=== PATIENT | female | born 1955 | race African-American/Black ===

== ENCOUNTER 2019-03-03 04:14 | Inpatient (IN) | payer BC ==
[~2019-03-03] VITALS: Ht 167.6 cm; Wt 81.2 kg
[2019-03-03] VITALS (11 sets, daily range): BP systolic 86–140; BP diastolic 11–82
--- NOTE | ~2019-03-03 | HC ---
[facility] [address] [place] [address] CONSULTATION Name: SERA HERMAN Room #: 212-P [facility] M.R.#: [id number] Admission: 03/03/19 Attend Phys: Seng Iraheta MD Discharge: Date of : 59 Report #: [id number] THIS REPORT FOR: //name// CC: Seng Iraheta MD FAM unknown CARDIOLOGY CONSULTATION HISTORY OF PRESENT ILLNESS: The patient is a 63-year-old female. 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 Coming off her shift and had significant back and chest discomfort. She has not had prior cardiac history, but has been a diabetic for 15 years. She denies any real change in exercise tolerance, perhaps some recent fatigue she states. There were equivocal EKG changes initially, a repeat then showed ST depression anteriorly and then high lateral leads, some subtle inferior ST elevation, which did develop. The patient has been maintained on lisinopril and metformin at home, not aware that she has been on a statin. She sees Dr. Iraheta. There was a CT performed. I suspect to rule out dissection. There was no evidence of aneurysm. Pulmonary arteries appear to be normal essentially and no evidence of dissection. LABORATORY WORK: Creatinine 1.2, potassium 3.7, troponin was less than 0.06. H and H was 11.6 and 35.5. PAST MEDICAL HISTORY: Positive for hypertension, diabetes and suspected hypercholesterolemia. Denies any surgeries. SOCIAL HISTORY: She is . She has no alcohol or tobacco. She is an FELLER HAND. She is relatively active. FAMILY HISTORY: Really not known she states. There are no records from her home country of [place] on her family she states. REVIEW OF SYSTEMS: Essentially negative except for stated above. PHYSICAL EXAMINATION: VITAL SIGNS: Pulse is 60s and blood pressure 110/70. HEENT: Eyes reveal xanthelasmas. Pharynx is clear. NECK: Shows preserved upstrokes without JVD or bruits. LUNGS: Clear. CARDIOVASCULAR: Regular rate and rhythm, S1, S2. ABDOMEN: Soft. No HSM or abdominal bruit. EXTREMITIES: Reveal no edema. Her pulses were intact. NEUROLOGIC: Intact. MUSCULOSKELETAL: No gross joint deformity. ASSESSMENT: [address] [address] CONSULTATION Name: SERA HERMAN Room #: 212-P [facility] M.R.#: [id number] Admission: 03/03/19 Attend Phys: Seng Iraheta MD Discharge: Date of : 59 Report #: [id number] 1. Acute stuttering inferior wall myocardial infarction, STEMI. 2. Diabetes. 3. Hypertension. 4. Suspected hypercholesterolemia. RECOMMENDATIONS AND PLAN: Heparin, aspirin and Lipitor 80 have been given. We will proceed to the catheterization lab for angiography and possible intervention. Risks, benefits, alternatives were quickly discussed with the patient. There are no known drug allergies. We will proceed on. Thank you for asking me to assist in the care of this patient. By: 0828 0852 /nt
[2019-03-03 04:56] LABS: ABSOLUTE NEUTROPHILS 6.6 thou/uL (1.4-8.2); BASOPHILS 0.6 % (0.0-2.0); EOSINOPHILS 1.9 % (0.0-3.0); HEMATOCRIT 35.5 % (37.0-47.0); HEMOGLOBIN 11.6 gm/dL (12.0-15.0); LYMPHOCYTES 29.5 % (24.0-44.0); MCH 28.2 pg (26.0-34.0); MCHC 32.7 g/dL (28.0-37.0); MCV 86.3 fL (80.0-100.0); PLATELET COUNT 293 thou/uL (150-400); RBC 4.11 mil/uL (4.20-5.00); RDW 14.2 % (10.5-14.5); WBC 10.8 thou/uL (4.0-11.0)
[2019-03-03 05:03] LABS: ANION GAP 10 mmol/L (7-16); BUN 29 mg/dL (7-18); CALCIUM 9.3 mg/dL (8.5-10.1); CHLORIDE 103 mmol/L (98-107); CO2 26 mmol/L (21-32); CREATININE 1.2 mg/dL (0.6-1.0); GLUCOSE 162 mg/dL (74-106); POTASSIUM 3.7 mmol/L (3.5-5.1); SODIUM 139 mmol/L (136-145)
[2019-03-03 05:13] LABS: ALBUMIN 3.8 g/dL (3.4-5.0); DIRECT BILIRUBIN < 0.1 mg/dL (<0.1-0.2); LIPASE 249 U/L (73-393); SGOT 18 U/L (15-37); SGPT 30 U/L (30-65); TOTAL BILIRUBIN 0.3 mg/dL (<0.1-1.0); TOTAL PROTEIN 7.1 g/dL (6.4-8.2); TROPONIN-I <0.06 ng/mL (<0.06)
[2019-03-03] MEDS ORDERED: LISINOPRIL20 MG PO (05:16)
[2019-03-03] MEDS ORDERED: GLUCOPHAGE1000 MG PO (05:17)
[2019-03-03] MEDS ORDERED: VICTOZA0.6 MG/0.1 SUBQ (08:41)
[2019-03-03] MEDS ORDERED: EFFEXOR XR75 MG PO (08:41)
[2019-03-03] MEDS ORDERED: FENOFIBRATE150 MG PO (08:42)
[2019-03-03] MEDS ORDERED: GLYBURIDE 5 MG T5 M1 PO (08:46)
[2019-03-03] MEDS ORDERED: KEFLEX250 M1 PO (08:47)
--- NOTE | 2019-03-03 14:10 | 2DMMODE ---
[facility] [address] [place] [address] 2 D/M-MODE ECHOCARDIOGRAM Name: SERA HERMAN Room #: 212-P ADM IN M.R.#: [id number] Admission: 03/03/19 Attend Phys: Seng Iraheta MD Discharge: Date of : 59 Report #: [id number] THIS REPORT FOR: //name// APPROVED REPORT Study performed: 03/03/2019 09:25:02 EXAM: Comprehensive 2D, Doppler, and color-flow Echocardiogram Patient Location: Bedside Room #: 212 Status: routine BSA: 1.87 HR: 60 bpm BP: 101/62 mmHg Rhythm: NSR Other Information Study Quality: Adequate Technically limited study due to inability to position patient post heart cath. Indications STEMI. Hx: HTN, HLP, DM. 2D Dimensions RVDd: 26.02 mm IVSd: 8.59 (7-11mm) LVOT Diam: 19.92 (18-24mm) LVDd: 42.28 mm PWd: 8.84 (7-11mm) Ascending Ao: 32.05 (22-36mm) LVDs: 26.37 (25-40mm) Aortic Root: 32.82 mm Volumes Left Atrial Volume (Systole) Single Plane 4CH: 36.85 mL Single Plane 2CH: 44.66 mL LA ESV Index: 23.00 mL/m2 Aortic Valve AoV Peak Graeme.: 1.40 m/s AO Peak Gr.: 7.89 mmHg LVOT Max P.09 mmHg LVOT Max V: 1.13 m/s ROSALINDA Vmax: 2.50 cm2 Mitral Valve [facility] [address] [place] [address] 2 D/M-MODE ECHOCARDIOGRAM Name: SERA HERMAN Room #: 212-P [facility] IN [facility].#: [id number] Admission: 03/03/19 Attend Phys: Seng Iraheta MD Discharge: Date of : 59 Report #: [id number] E/A Ratio: 0.9 MV Decel. Time: 212.49 ms MV E Max Graeme.: 0.80 m/s MV A Graeme.: 0.93 m/s MV PHT: 61.62 ms IVRT: 83.04 ms Pulmonary Valve PV Peak Graeme.: 0.91 m/s PV Peak Gr.: 3.33 mmHg Pulmonary Vein P Vein S: 0.69 m/s P Vein A: 0.36 m/s P Vein D: 0.35 m/s P Vein A Dur.: 152.2 msec P Vein S/D Ratio: 1.97 Tricuspid Valve TR Peak Graeme.: 2.45 m/s RAP Estimate: 5.00 mmHg TR Peak Gr.: 24.00 mmHg PA Pressure: 29.00 mmHg Left Ventricle The left ventricle is normal size. There is normal LV segmental wall motion. There is normal left ventricular wall thickness. Left ventricular systolic function is normal. LVEF is 55-60%. Mild diastolic dysfunction is present (impaired relaxation pattern). Right Ventricle The right ventricle is normal size. The right ventricular systolic function is normal. Atria The left atrium size is normal. The right atrium size is normal. Aortic Valve The aortic valve is normal in structure. No aortic regurgitation is present. There is no aortic valvular stenosis. Mitral Valve The mitral valve is normal in structure. Trace mitral regurgitation. Tricuspid Valve The tricuspid valve is normal in structure. Mild to moderate tricuspid regurgitation. Estimated PAP is 30mmHg. [facility] [address] [place] [address] 2 D/M-MODE ECHOCARDIOGRAM Name: SERA HERMAN Room #: 212-P [facility] IN .R.#: [id number] Admission: 03/03/19 Attend Phys: Seng Iraheta MD Discharge: Date of : 59 Report #: [id number] Pulmonic Valve The pulmonary valve is normal in structure. Trace pulmonic regurgitation. Great Vessels The aortic root is normal in size. The ascending aorta is normal in size. IVC is normal in size and collapses >50% with inspiration. Pericardium There is no pericardial effusion. <Conclusion> The left ventricle is normal size. LVEF is 55-60%. The aortic valve is normal in structure. The mitral valve is normal in structure. Trace mitral regurgitation. The tricuspid valve is normal in structure. Mild to moderate tricuspid regurgitation. Estimated PAP is 30mmHg. The pulmonary valve is normal in structure. Trace pulmonic regurgitation. There is no pericardial effusion. <ELECTRONICALLY SIGNED> By: Juan Aldana MD 03/03/19 1409 1409 1409 Juan Aldana MD /INF
--- NOTE | 2019-03-03 19:20 | NUR ---
DR. FRAIRE ON FLOOR WHEN NOTIFIED ABOUT PT'S ADMISSION; ORDERS RECEIVED; PT. ARRIVED AT FLOOR AROUND 0800; AOX4; R. GROIN AREA; C/D/I; NO C/O PAIN; EDUCATED ABOUT BED REST FOR 3H; FROM 0740 TO 1040; ST. UNDERSTANDING; EDUCATED ABOUT HOLDING PRESSURE IF COUGH OR LAUGHING TO HARD; ST. UNDERSTANDING; SBP ON THE 90s; MAP ABOVE 65; NS AT 70 FOR 7H; INTEGRILIN RUNNING AT 2MCG/KG/H; SECOND BOTTLE RUNNED ON THE FLOOR; THROUGH THE DAY NO HEMATOME OVER R. GROIN AREA; AROUND NOON SMALL DRAINAGE NOTICED; CHECK CHARTING; NO INCREASE DRAINAGE; C/O BACK PAIN; NO PRN PAIN MEDICATION; PHYSICIAN NOTIFIED; ORDERS RECEIVED; HR ON THE MONITOR; ASSESSMENT CHARGED; FOLLOWING POC; PASSED ON REPORT;
--- NOTE | 2019-03-03 19:44 | EKG ---
[place] [address] [facility] [place] [address] ELECTROCARDIOGRAM REPORT Name: KAMILAHLANCESERA Room #: 212-P ADM IN M.R.#: [id number] Admission: 03/03/19 Attend Phys: Seng Iraheta MD Discharge: Date of : 59 Report #: [id number] THIS REPORT FOR: //name// [facility] ED Test Date: 2019-03-03 Test Time: 04:17:04 Pat Name: SERA HERMAN Department: Room: [facility] Gender: F Publishing Manager: kristine : 1955 Requested By: Momo Stinson Order Number: [id number] MD: Tate Kimbrough Measurements Intervals [place] Rate: 60 P: 52 NH: 150 QRS: 32 QRSD: 90 T: 74 QT: 417 QTc: 417 Interpretive Statements Sinus rhythm Borderline repolarization abnormality No previous ECG available for comparison Electronically Signed On 03-03-2019 19:43:59 BRAND PROTECTION MANAGER by Tate Kimbrough [email or web address] <ELECTRONICALLY SIGNED> By: Tate Kimbrough MD, [facility] 03/03/19 1943 0417 0417 Tate Kimbrough MD, FACC /EPI
--- NOTE | 2019-03-03 19:45 | EKG ---
[place] [address] [employer] [place] [address] ELECTROCARDIOGRAM REPORT Name: SERA HERMAN Room #: 212-P ADM IN M.R.#: [id number] Admission: 03/03/19 Attend Phys: Seng Iraheta MD Discharge: Date of : 59 Report #: [id number] THIS REPORT FOR: //name// [facility] ED Test Date: 2019-03-03 Test Time: 05:05:16 Pat Name: SERA HERMAN Department: Room: [facility] Gender: F Shirt Hemmer: cruzito : 1955 Requested By: Momo Stinson Order Number: [id number] MD: Tate Kimbrough Measurements Intervals [place] Rate: 62 P: 45 [place]: 158 QRS: 29 QRSD: 79 T: 94 QT: 394 QTc: 400 Interpretive Statements Sinus rhythm T wave abnormality No previous ECG available for comparison Electronically Signed On 03-03-2019 19:44:36 FRANCHISE BUSINESS CONSULTANT by Tate Kimbrough [email or web address] <ELECTRONICALLY SIGNED> By: Tate Kimbrough MD, [facility] 03/03/19 1944 0505 0505 Tate Kimbrough MD, FACC /EPI
--- NOTE | 2019-03-03 19:46 | EKG ---
[place] [address] [facility] [place] [address] ELECTROCARDIOGRAM REPORT Name: SERA HERMAN Room #: 212-P ADM IN M.R.#: [id number] Admission: 03/03/19 Attend Phys: Seng Iraheta MD Discharge: Date of : 59 Report #: [id number] THIS REPORT FOR: //name// [facility] ED Test Date: 2019-03-03 Test Time: 05:10:00 Pat Name: SERA HERMAN Department: Room: [facility] Gender: F Sampling Expert: : 1955 Requested By: Momo Stinson Order Number: [id number] MD: Tate Kimbrough Measurements Intervals [place] Rate: 71 P: 41 [place]: 164 QRS: 31 QRSD: 79 T: 99 QT: 382 QTc: 416 Interpretive Statements Sinus rhythm ST elevation, consider inferior injury No previous ECG available for comparison Electronically Signed On 03-03-2019 19:46:20 PIT OPERATOR by Tate Kimbrough [email or web address] <ELECTRONICALLY SIGNED> By: Tate Kimbrough MD, [facility] 03/03/19 1946 0510 0510 Tate Kimbrough MD, FACC /EPI
[2019-03-04 03:41] VITALS: BP 104/57
--- NOTE | 2019-03-04 05:19 | NUR ---
ASSUMED PT CARE AROUND 1920. PT WAS RESTING IN BED WITH AT BEDSIDE. DRESSING WAS CHECKED AND THERE WAS NO MORE DRAINAGE FROM PREVIOUS SHIFT. MONITORED PT CLOSELY THRU NIGHT FOR ANY SIGNS OF PAIN OR FURTHER DRAINAGE. NONE NOTED AND DRESSING WAS CHANGED. PT HAD NO C/O OF CHEST PAIN, SOA, OR N/V/D. PT IS PROGRESSING TOWARDS PLAN OF CARE APPROPRIATELY.
[2019-03-04 05:40] LABS: HEMATOCRIT 33.9 % (37.0-47.0); HEMOGLOBIN 10.8 gm/dL (12.0-15.0); MCH 27.8 pg (26.0-34.0); MCV 86.9 fL (80.0-100.0); RBC 3.9 mil/uL (4.20-5.00); WBC 8.1 thou/uL (4.0-11.0)
[2019-03-04 05:55] LABS: ALBUMIN 3.1 g/dL (3.4-5.0); ANION GAP 9 mmol/L (7-16); BUN 20 mg/dL (7-18); CHLORIDE 107 mmol/L (98-107); CHOLESTEROL 132 mg/dL (<200); CO2 27 mmol/L (21-32); CREATININE 1.1 mg/dL (0.6-1.0); GLUCOSE 86 mg/dL (74-106); HDL CHOLESTEROL 36 mg/dL (>40); LDL CHOLESTEROL 87 mg/dL (<100); SGOT 57 U/L (15-37); SGPT 35 U/L (30-65); SODIUM 143 mmol/L (136-145); TC:HDL 3.7 Ratio (Not establshd); TOTAL BILIRUBIN 0.3 mg/dL (<0.1-1.0); TOTAL PROTEIN 6.2 g/dL (6.4-8.2); TRIGLYCERIDE 47 mg/dL (<150); VLDL 9 mg/dL (<40)
[2019-03-04 05:58] LABS: SERUM ASSESSMENT Clear; TROPONIN-I 9.59 ng/mL (<0.06)
[2019-03-04 07:00] VITALS: BP 107/63
[2019-03-04 10:30] VITALS: BP 124/75
[2019-03-04 15:30] VITALS: BP 118/65
--- NOTE | 2019-03-04 19:15 | NUR ---
Pt stable today. No chest pain. Right groin site stable. Report given to RN assuming care.
[2019-03-04 20:11] VITALS: BP 103/53
[2019-03-05 00:06] LABS: GLYCOHEMOGLOBIN (HGB A1C) 6.2 % (4.8-5.6)
[2019-03-05 03:22] VITALS: BP 107/67
[2019-03-05 05:21] LABS: CALCIUM 9.2 mg/dL (8.5-10.1); POTASSIUM 3.9 mmol/L (3.5-5.1)
[2019-03-05 05:24] LABS: ABSOLUTE NEUTROPHILS 3.4 thou/uL (1.4-8.2); BASOPHILS 0.5 % (0.0-2.0); EOSINOPHILS 3.7 % (0.0-3.0); HEMATOCRIT 35.2 % (37.0-47.0); HEMOGLOBIN 11.5 gm/dL (12.0-15.0); LYMPHOCYTES 41.5 % (24.0-44.0); MCH 28.2 pg (26.0-34.0); MCHC 32.6 g/dL (28.0-37.0); MCV 86.5 fL (80.0-100.0); MONOCYTES 9.2 % (1.0-8.0); PLATELET COUNT 236 thou/uL (150-400); POLYS 45.1 % (36.0-66.0); RBC 4.07 mil/uL (4.20-5.00); RDW 14.3 % (10.5-14.5); WBC 7.6 thou/uL (4.0-11.0)
[2019-03-05 07:00] VITALS: BP 112/69
[2019-03-05] MEDS ORDERED: ASPIRIN325 PO (07:18)
[2019-03-05] MEDS ORDERED: METOPROLOL SUCC25 M1 PO (07:18)
[2019-03-05] MEDS ORDERED: EFFIENT10 MG PO (07:18)
[2019-03-05] MEDS ORDERED: LIPITOR40 MG PO (07:18)
--- NOTE | 2019-03-05 07:22 | H ---
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 The patient called her and talked to her coworkers who advised her to come to the Emergency Room to be evaluated. The patient was found to have ST depression anteriorly and then high lateral leads, depression and some subtle inferior ST elevation. For this reason, the patient was taken immediately to the cardiac catheterization for evaluation and treatment. The patient was found to have a ST elevation myocardial infarction and she was treated with angioplasty. PAST MEDICAL HISTORY: Significant for depression, diabetes mellitus, hyperlipidemia, hypertension, morbid obesity, and peripheral neuropathy. The patient had previous history of cholecystectomy and . MEDICATIONS: The patient's medications include Effexor 75 mg daily, fenofibrate 160 mg daily, lisinopril 20 mg daily, metformin 1000 mg twice a day, Victoza 1.2 mg subcutaneous daily. ALLERGIES: No known drug allergy. SOCIAL HISTORY: The patient denies any smoking, alcohol use or drug use. FAMILY HISTORY: Not contributory. REVIEW OF SYSTEMS: Negative besides what was mentioned above. PHYSICAL EXAMINATION: VITAL SIGNS: On arrival to the hospital, the patient's temperature was 97.7, pulse 60, respirations 16, blood pressure 110/70. HEAD AND NECK: Unremarkable. NECK: Supple. LUNGS: Clear to auscultation with good air entry bilaterally. CARDIAC: S1, S2, without any murmur or gallop. ABDOMEN: Benign. Bowel sounds were positive. EXTREMITIES: Without any edema. [facility] [address] [place] [address] HISTORY AND PHYSICAL Name: SERA HERMAN Room #: 212-P [facility] [place] [facility]#: [id number] Admission: 03/03/19 Attend Phys: Seng Iraheta MD Discharge: Date of : 59 Report #: [id number] LABORATORY DATA: The patient's CBC with diff showed white count of 10.8, hemoglobin 11.6, hematocrit 35.5, platelet count 293, neutrophils are 61%. Basic metabolic panel showed a sodium of 139, potassium 3.6, chloride 103, bicarbonate 26, anion gap 10, BUN 29, creatinine 1.2, glucose 162, AST 18, lipase 249, total bilirubin 0.3, direct bilirubin 0.1, calcium 9.3, alkaline phosphatase 48, ALT 30. The patient's initial troponin was less than 0.06. The patient's chest x-ray showed normal single chest x-ray. A CT angiogram showed minimal atherosclerosis of the abdominal aorta without evidence of aneurysm, dissection or focal narrowing. Stomach was distended with food and liquid. Pulmonary arteries were symmetric perfusion and no evidence of filling defects. Echocardiogram showed left ventricular size is normal, normal left ventricular ejection fraction 55-60%. Aortic valve is normal. Mitral valve is normal, trace mitral regurgitation. Tricuspid valve normal. [id number] tricuspid regurgitation with estimated pulmonary artery pressure is 30. Pulmonary valve is normal in structure, trace pulmonic regurgitation and no pericardial effusion. EKGs were reviewed. Today's CBC showed white count of 8.1, hemoglobin 10.8, hematocrit 33.9. A comprehensive metabolic panel showed a BUN of 20, creatinine 1.1, AST 57, alkaline phosphatase 41. Troponin was 9.59, total cholesterol is 132, triglycerides 47, HDL 36, LDL 87. ASSESSMENT AND PLAN: 1. ST elevation myocardial infarction. 2. Diabetes mellitus. 3. Hypertension. 4. Morbid obesity. 5. Peripheral arterial disease. 6. Depression. The patient was admitted to the hospital with the above-mentioned diagnoses. The patient had emergent cardiac catheterization with angioplasty to the right coronary artery. The patient would be advised to continue her current medications. The patient was started on atorvastatin during her hospitalization. She is on Integrilin infusion. The patient will be started on insulin while she is in the hospital. We are holding the patient's metformin for now because of the use of contrast. The patient's kidney function continued to be stable. The patient's blood pressure is stable on lisinopril. She is to continue the rest of her medications. We will continue to monitor the patient for now. I will add Victoza to her medication list. <ELECTRONICALLY SIGNED> By: Seng Iraheta MD 03/05/19 0722 0706 0736 Seng Iraheta MD /nt
--- NOTE | 2019-03-05 08:24 | EKG ---
[place] [address] [employer] [facility] [employer] [place] [address] ELECTROCARDIOGRAM REPORT Name: SERA HERMAN Room #: 212-P ADM IN M.R.#: [id number] Admission: 03/03/19 Attend Phys: Seng Iraheta MD Discharge: Date of : 59 Report #: [id number] THIS REPORT FOR: //name// [facility] Test Date: 2019-03-04 Test Time: 07:37:30 Pat Name: SERA HERMAN Department: Room: 212 P Gender: F Technology Internship: EDMUNDO : 1955 Requested By: Carrie Barron Order Number: [id number] MD: Tate Kimbrough Measurements Intervals [place] Rate: 67 P: 37 DC: 122 QRS: 4 QRSD: 92 T: -24 QT: 425 QTc: 449 Interpretive Statements Sinus rhythm Inferior infarct, recent Compared to ECG 03/03/2019 05:10:[address] segment elevation is no longer present Electronically Signed On 03-05-2019 8:23:14 COMMERCIAL GLAZIER by Tate Kimbrough [email or web address] <ELECTRONICALLY SIGNED> By: Tate Kimbrough MD, [facility] 03/05/19822 6 6 Tate Kimbrough MD, [facility] /EPI
[2019-03-05 08:28] VITALS: BP 112/69
[2019-03-05 08:51] VITALS: BP 112/69
--- NOTE | 2019-03-05 09:35 | NUR ---
BEING DISCHARGED TO HOME. SALINE LOCK, TELE DISCONTINUED. DISCHARGE INSTRUCTIONS INCLUDING NEW MED INFO GIVEN.
--- NOTE | 2019-03-05 18:40 | CATHLAB ---
[facility] [address] [place] [address] INVASIVE PROCEDURE REPORT Name: SERA HERMAN Room #: 212-P [facility] IN [facility]#: [id number] Admission: 03/03/19 Attend Phys: Seng Iraheta MD Discharge: 03/05/19 Date of : 59 Report #: [id number] THIS REPORT FOR: //name// APPROVED REPORT Study performed: 03/03/2019 05:45:38 Patient Details Patient Status: ED Room #: The patient is a 63 year-old female Event Personnel Pito Richards Security Support Analyst, Halle Montero RN, Tavia Gonzalez RTR, EDUCATION PARAPROFESSIONAL Monitor, Elise Nicole Higgins, Marie RN hot air furnace installer repairer Performed Art Access - R femoral artery* Left Heart Cath w/or w/o Coronaries [id number] [facility] Revasc AMI Total/Sub Single RCA C9606 AMIREVSING 79432 Initial Mod Sed Same Phys/QHP Gr5y 008940 20626 Mod Sed Same Phys/QHP Ea 320205 Hemostasis w/ Mynx Indication STEMI (>0 to less than or equal to 6 hours) Procedure Narrative The Right Groin^ was infiltrated with 1% Lidocaine subcutaneous anesthesia. A PINNACLE 6FR Sheath #[id number] sheath was inserted into the RFA^. Coronary angiography was performed using coronary diagnostic catheters. The right coronary system was accessed and visualized with a JR4 catheter. The left coronary system was accessed and visualized with a JL4 catheter. The left ventricle was accessed and visualized with a PIGTAIL catheter. Left ventriculogram was performed in 30 degree projection. An aortogram of the abdominal aorta was performed. Closure device was deployed with a 6 Fr MYNXGRIP 6/7F #[id number]. The patient tolerated the procedure well and there were no complications associated with the procedure. There was no hematoma. Intraoperative Conscious Sedation Sedation start time: 06:12 Case end Time: 07:39 Fentanyl 100 mcg Versed 1 mg Fluoro Time: 26.07 minutes [facility] [address] [place] [address] INVASIVE PROCEDURE REPORT Name: VIRGILSERA Room #: 212-P [facility]#: [id number] Admission: 03/03/19 Attend Phys: Seng Iraheta MD Discharge: 03/05/19 Date of : 59 Report #: [id number] Dose: DAP 62436.50 cGycm2 2896 mGy Contrast Type and Amount: Visipaque 245 ml Hemodynamics The aortic pressure is 104/61 mmHg with a mean of 80 mmHg. The left ventricular pressure is 108/3 mmHg with a mean of mmHg. The left ventricular end diastolic pressure is 12 mmHg. PCI Technique Lesion Percutaneous coronary intervention was performed on the proximal right coronary artery. A LAUNCHER 6FR 3DRC #[id number] Guide Catheter was used to engage the ostium. A Luge Wire .014 x 182CM #[id number] Interventional Guidewire was used to cross the lesion. BALLOON DILATION A Balloon catheter Sprinter OTW 2.25 x 12 #[id number] was inserted and inflated up to 10.00atm for 22seconds. Additional Inflation: 10.00atm for 20seconds. A Balloon catheter, Sprinter OTW 2.5 x 12 was inserted and inflated up to 16 abril for 22 seconds. STENT DEPLOYMENT A drug-eluting stent RESOLUTE MELISSA OTW 2.5 X 12 #[id number] was inserted and inflated up to 14.00atm for 27seconds. POST STENT DEPLOYMENT BALLOON DILATION A Balloon catheter TREK NC OTW 2.5 X 12 #[id number] was inserted and inflated up to 18.00atm for 15seconds. PCI Technique Lesion 2 Percutaneous coronary intervention was performed on the DISTAL TO FIRST STENT PROXIMAL RCA. A LAUNCHER 6FR 3DRC #[id number] Guide Catheter was used to engage the ostium. A Luge Wire .014 x 182CM #[id number] Interventional Guidewire was used to cross the lesion. Balloon Dilation A Balloon catheter Sprinter OTW 2.5 x 12 #[id number] was inserted and inflated up to 12atm for 37seconds. Stent Deployment A drug-eluting stent RESOLUTE MELISSA OTW 2.5 X 8 #[id number] was inserted and inflated up to 10atm for 34seconds. Additional Inflation: 16atm for 30seconds. Post Stent Deployment Balloon Dilation A Balloon catheter TREK NC OTW 2.5 X 12 #[id number] was inserted and inflated up to 6atm for 42seconds. Additional Inflation: 18atm for [facility] [address] [place] [address] INVASIVE PROCEDURE REPORT Name: SERA HERMAN Room #: 212-P [facility] IN M.R.#: [id number] Admission: 03/03/19 Attend Phys: Seng Iraheta MD Discharge: 03/05/19 Date of : 59 Report #: [id number] 16seconds. Conclusion #1 successful emergent PTCA stent of a subtotaled dominant right coronary artery with clot formation acute infarct vessel. 20% with placement of a 2.5 x 12 a 2.5 x 8 medicated stents postdilated noncompliant balloon to 2.7 mm moderate disease distal vessel anatomically dominant YANG grade 3 flow #2 ostial PDA 70% stenosis will follow this is filled by the infarct vessel #3 ostial left main 30% giving rise to LAD and circumflex #4 LAD proximal calcification moderate disease proximal segment 3040% mid vessel 3040% extends to the apex old disease diagonal system #5 circumflex OM moderate disease there is a proximal lesion at the takeoff of the first OM of 70% OM also has some disease of 50-60% will treat this aggressively no intervention. Anatomically nondominant but moderate distribution # 6 normal left ventricular size and subtle inferior hypokinesis EF 50% range #7 abdominal aortogram intact no aneurysm single bilateral renal arteries are patent Recommendations s and plan: Continue aggressive risk factor modification. Acute infarct vessel YANG grade 3 flow as stated above. Moderate disease in left system will follow. Will antiplatelet therapy. Transfer to CCU follow stent protocol. Hemodynamically stable. <ELECTRONICALLY SIGNED> By: Pito Richards MD, FACC 03/05/191838 38 38 Pito Richards MD, FACC /INF
== END 2019-03-05 10:00 | disposition home or self-care (01) | DRG 247 ==
LOC: ER 04:14 → 2N 06:01 → EROBS 06:01 → 2N 06:01
PROVIDERS: Emergency Medicine; Nurse Practitioner Adult Health; ADMIT Internal Medicine
PROC: 4A023N7 Measurement of Cardiac Sampling and Pressure, Left Heart, Percutaneous Approach (ICD-10-PCS; principal; 2019-03-03)
PROC: 027035Z Dilation of Coronary Artery, One Artery with Two Drug-eluting Intraluminal Devices, Percutaneous Approach (ICD-10-PCS; principal; 2019-03-03)
PROC: B211YZZ Fluoroscopy of Multiple Coronary Arteries using Other Contrast (ICD-10-PCS; principal; 2019-03-03)
PROC: B310YZZ Fluoroscopy of Thoracic Aorta using Other Contrast (ICD-10-PCS; principal; 2019-03-03)
PROC: B215YZZ Fluoroscopy of Left Heart using Other Contrast (ICD-10-PCS; principal; 2019-03-03)
DX: I21.19 ST elevation (STEMI) myocardial infarction involving other coronary artery of inferior wall (principal); I10 Essential (primary) hypertension; F32.9 Major depressive disorder, single episode, unspecified; E78.5 Hyperlipidemia, unspecified; E66.01 Morbid (severe) obesity due to excess calories; E11.42 Type 2 diabetes mellitus with diabetic polyneuropathy; E11.51 Type 2 diabetes mellitus with diabetic peripheral angiopathy without gangrene; Z68.28 Body mass index [BMI] 28.0-28.9, adult; Z90.49 Acquired absence of other specified parts of digestive tract; Z79.899 Other long term (current) drug therapy
CPT/HCPCS: 10081

== ENCOUNTER → 2019-06-16 | Outpatient (CLI) | payer BC ==
[~2019-06-16] MED LIST: ASPIRIN325 PO; EFFEXOR XR75 MG PO; EFFIENT10 MG PO; FENOFIBRATE150 MG PO; GLUCOPHAGE1000 MG PO; GLYBURIDE 5 MG T5 M1 PO; KEFLEX250 M1 PO; LIPITOR40 MG PO; LISINOPRIL20 MG PO; METOPROLOL SUCC25 M1 PO; VICTOZA0.6 MG/0.1 SUBQ
== END ==
LOC: SJCVCIMAG 08:42
DX: I25.10 Atherosclerotic heart disease of native coronary artery without angina pectoris (principal); I25.2 Old myocardial infarction; E78.5 Hyperlipidemia, unspecified; E11.9 Type 2 diabetes mellitus without complications; Z79.82 Long term (current) use of aspirin; Z79.899 Other long term (current) drug therapy; Z79.84 Long term (current) use of oral hypoglycemic drugs